=== PATIENT | male | born 1975 | race Caucasian/White ===

== ENCOUNTER 2018-07-05 09:46 | Emergency (ER) | payer BC ==
--- NOTE | 2018-07-05 10:02 | UC ---
Headache HPI - HPI Summary HPI Summary: 42 yo male presents with generalized headache for the last 9 days. He tells me that about 3 weeks ago he feel walking on the ice to his truck and hit the back of his head on the ice. No LOC. Was able to get to his feet and continued about his day. Was never evaluated by a medical provider for this injury. About 9 days ago he woke up with a mild headache, which he says is not uncommon for him. He will usually take tylenol/ibuprofen and his headache goes away. This headache has had some improvement with tylenol/ibuprofen, but has not resolved completely. He notes that his headache is worse while at work while working with computer screens. Rest improves his headache. Denies recent illness, fever , SOB, chest pain, palpitations, abdominal pain, n/v. - History Of Current Complaint Chief Complaint: UCHeadInjury Stated Complaint: HEADACHE Time Seen by Provider: 07/05/18 10:01 Hx Obtained From: Patient Onset/Duration: Gradual Onset Initially Headache Was: Mild Currently Pain Is: Mild Pain Intensity: 4 Pain Scale Used: 0-10 Numeric - Allergies/Home Medications Allergies/Adverse Reactions: Allergies Allergy/AdvReac Type Severity Reaction Status Date / Time No Known Allergies Allergy Verified 07/05/18 10:01 Home Medications: Home Medications NK [No Home Medications Reported] 07/05/18 [History Confirmed 07/05/18] PMH/Surg Hx/FS Hx/Imm Hx - Additional Past Medical History Additional PMH: None - Surgical History Surgical History: None - Family History Known Family History: Positive: Hypertension - Social History Occupation: Employed Full-time Lives: With Family Alcohol Use: Rare Substance Use Type: None Smoking Status (MU): Never Smoked Tobacco Review of Systems All Other Systems Reviewed And Are Negative: Yes Constitutional: Positive: Negative Skin: Positive: Negative Eyes: Positive: Negative ENT: Positive: Negative Respiratory: Positive: Negative Cardiovascular: Positive: Negative Gastrointestinal: Positive: Negative Genitourinary: Positive: Negative Neurovascular: Positive: Negative Musculoskeletal: Positive: Negative Neurological: Positive: Headache Psychological: Positive: Negative Physical Exam - Summary Physical Exam Summary: GENERAL: NAD. WDWN. No pain distress. SKIN: No rashes, sores, ulcers, masses, lesions. HEENT: Head: AT/NC. No raccoon eyes or battles sign. No hematoma. Eyes: PERRLA. EOM intact. Conjunctiva clear without inflammation or discharge. Ears: Hearing grossly normal. TMs intact, no bulging, erythema, or edema. No hemotympanum NECK: Supple. Nontender. FROM CHEST: CTAB. No r/r/w. No accessory muscle use. Breathing comfortably and in no distress. CV: RRR. Without m/r/g. Pulses intact. Brisk cap refill. MSK: FROM in B/L UEs and LEs with symmetric strength. NEURO: A&Ox3. 3 word recall, remote, recent memory, ability to follow 2-step directions, and attention intact. CN: II: Peripheral boone intact. Vision normal. III, IV, : EOMI. No nystagmus. PERRLA. V: Sensations intact and symmetric. Opens mouth and clenches teeth. VII: No facial asymmetry. Forehead wrinkles. Grins, shuts eyes, frowns, puffs cheeks. VIII: Hearing intact to finger rub. IX, X: Swallows and coughs. Uvula midline. XI: Shrugs shoulders. Turns head against resistance. XII: No tongue deviation [id number] are intact. Gait with normal base. Romberg: maintains balance, no pronator drift. Normal speech. No facial drooping. PSYCH: Age appropriate behavior. Triage Information Reviewed: Yes Vital Signs: Initial Vital Signs Temp 98 F 07/05/18 09:58 Pulse 68 07/05/18 09:58 Resp 16 07/05/18 09:58 BP 158/98 07/05/18 09:58 Pulse Ox 100 07/05/18 09:58 Vital Signs Reviewed: Yes Headache Course/Dx - Course Course Of Treatment: CT: IMPRESSION: #. No CT evidence for traumatic brain injury or acute intracranial process. Normal exam. He was given toradol IM in the clinic for his headache. I suspect he may be suffering from post-concussion syndrome given his head injury prior to his current symptoms. Advised to rest and refrain from activities that worsen his headache such as computer screens, texting, and physical activities. Advised to f/u with [facility] and/or his pcp for follow up. - Differential Dx/Diagnosis Provider Diagnosis: Head injury, Post concussion syndrome Discharge - Sign-Out/Discharge Documenting (check all that apply): Patient Departure All imaging exams completed and their final reports reviewed: Yes - Discharge Plan Condition: Stable Disposition: HOME Patient Education Materials: Acute Headache (ED), Post Concussion Syndrome (ED) Referrals: No Primary Care Phys,NOPCP [Primary Care Provider] - [facility] [Provider Group] - If Needed Additional Instructions: If you develop a fever, shortness of breath, chest pain, new or worsening symptoms - please call your PCP or go to the ED. Your blood pressure was high at todays visit. Please see your primary provider within 4 weeks for recheck and re-evaluation. 1) Refrain from activities that worsen your headache - this may include texting , computer screens, or physical activity. 2) May continue taking tylenol/ibuprofen for your discomfort 3) If your headache persists - please follow up with our Concussion clinic at [facility] - Billing Disposition and Condition Condition: STABLE Disposition: Home - Attestation Statements Provider Attestation: I was available for consult. This patient was seen by the YIFAN. The patient was not presented to, seen by, or examined by me. -Aneta
[2018-07-05] MEDS ORDERED: Ketorolac INJ* 60 MG/2 ML VIAL IM ONE (10:10)
== END 2018-07-05 10:45 | disposition home or self-care (01) ==
LOC: UCEAST 09:46
DX: S09.90XA Unspecified injury of head, initial encounter (principal); W00.9XXA Unspecified fall due to ice and snow, initial encounter; Y93.01 Activity, walking, marching and hiking; Y92.9 Unspecified place or not applicable; F07.81 Postconcussional syndrome
CPT/HCPCS: 70450; 96372; 99201; G0463; J1885

== ENCOUNTER 2018-12-10 08:02 | Emergency (ER) | payer BC ==
[2018-12-10] MEDS ORDERED: NS 0.9% 1000 ML** 1,000 ML IV ONE (08:29)
[2018-12-10] MEDS ORDERED: Ondansetron INJ* 2 MG/ML VIAL IV ONE (08:29)
[2018-12-10] MEDS ORDERED: Ketorolac INJ* 30 MG/ML 1 ML VIAL IV PUSH ONE (08:29)
[2018-12-10 08:39] LABS: Urine Appearance Cloudy; Urine Bacteria Absent (Absent); Urine Bilirubin Negative (Negative); Urine Blood 2+ (Negative); Urine Color Yellow; Urine Glucose Negative (Negative); Urine Ketones Trace (Negative); Urine Nitrite Negative (Negative); Urine Protein Negative (Negative); Urine Red Blood Cell 3+(>10/hpf) (Absent); Urine Specific Gravity 1.028 (1.010-1.030); Urine Urobilinogen Negative (Negative); Urine White Blood Cell Trace(0-5/hpf) (Absent)
[2018-12-10 08:41] LABS: ABS Lymphocytes 0.9 10^3/ul (1.0-4.8); ABS Monocytes 0.2 10^3/ul (0-0.8); ABS Neutrophils 7.4 10^3/ul (1.5-7.7); Eosinophil % 0.3 %; Hematocrit 43 % (42-52); Hemoglobin 14.6 g/dL (14.0-18.0); Lymphocyte % 10.2 %; Mean Corpuscular HGB Conc 34 g/dL (31-36); Mean Corpuscular Hemoglobin 31 pg (27-31); Mean Corpuscular Volume 90 fL (80-94); Mean Platelet Volume 8.1 fL (7.4-10.4); Platelet Count 204 10^3/uL (150-450); Red Blood Count 4.71 10^6 /uL (4.18-5.48); Red Cell Distribution Width 13 % (10-15); White Blood Count 8.6 10^3/uL (3.5-10.8)
[2018-12-10 08:54] LABS: Albumin 4.4 g/dL (3.2-5.2); Calcium 9.8 mg/dL (8.6-10.3); Potassium 4.5 mmol/L (3.5-5.0); Total Bilirubin 0.5 mg/dL (0.2-1.0)
[2018-12-10 09:00] LABS: Albumin/Globulin Ratio 1.3 (1-3); BUN/Creatinine Ratio 14.9 (8-20); C Reactive Protein 3.75 mg/L (<8.01); EGFR African American 84.1 (>60); EGFR Non-African American 69.5 (>60); Globulin 3.3 g/dL (2-4); Total Protein 7.7 g/dL (6.4-8.9)
[2018-12-10 10:10] VITALS: BP 117/85
--- NOTE | 2018-12-10 11:03 | ED ---
Back Pain - HPI Summary HPI Summary: Patient is a 43-year-old male who presents to the emergency department for acute onset of right flank pain and radiates into right lower leg. Patient denies any injuries or falls. She also notes urinary hesitancy and pressure. He denies such symptoms of fever, chills, chest pain, shortness of breath. He notes nausea without vomiting. Patient has never experienced symptoms like these in the past. No past medical history. Symptoms are moderate in severity. No current modifying factors. - History of Current Complaint Chief Complaint: EDAbdPain Stated Complaint: ABDOMINAL AND BACK PAIN PER PT Time Seen by Provider: 12/10/18 08:10 Hx Obtained From: Patient Pain Intensity: 1 Pain Scale Used: 0-10 Numeric - Allergies/Home Medications Allergies/Adverse Reactions: Allergies Allergy/AdvReac Type Severity Reaction Status Date / Time No Known Allergies Allergy Verified 12/10/18 08:06 PMH/Surg Hx/FS Hx/Imm Hx Previously Healthy: Yes Infectious Disease History: No Infectious Disease History: Denies: Traveled Outside the [place] in Last 30 Days - Family History Known Family History: Positive: Hypertension, Non-Contributory - Social History Occupation: Employed Full-time Lives: With Family Alcohol Use: Rare Substance Use Type: Reports: None Smoking Status (MU): Never Smoked Tobacco Review of Systems Constitutional: Negative Negative: Fever, Chills Cardiovascular: Negative Respiratory: Negative Positive: Abdominal Pain, Nausea Positive: flank pain, urgency All Other Systems Reviewed And Are Negative: Yes Physical Exam Triage Information Reviewed: Yes Vital Signs On Initial Exam: Initial Vitals Temp Pulse Resp BP Pulse Ox 96.3 F 62 18 174/94 100 12/10/18 08:04 12/10/18 08:04 12/10/18 08:04 12/10/18 08:04 12/10/18 08:04 Vital Signs Reviewed: Yes Appearance: Positive: Well-Appearing - Pt. lying on bed holding right flank. Appears uncomfortable but nontoxic. Skin: Positive: Warm, Dry Head/Face: Positive: Normal Head/Face Inspection Eyes: Positive: Normal, EOMI Neck: Positive: Supple Respiratory/Lung Sounds: Positive: Clear to Auscultation, Breath Sounds Present Cardiovascular: Positive: Normal, RRR Abdomen Description: Positive: Nontender, Soft, Other:. Negative: CVA Tenderness (R), CVA Tenderness (L) Musculoskeletal: Positive: Normal, Strength/ROM Intact Neurological: Positive: Normal, CN Intact II-III Psychiatric: Positive: Affect/Mood Appropriate Diagnostics - Vital Signs Vital Signs Temp Pulse Resp BP Pulse Ox 12/10/18 10:10 97.8 F 77 19 117/85 97 12/10/18 10:08 117/85 12/10/18 10:00 72 96 12/10/18 09:42 73 125/78 99 12/10/18 09:13 78 122/79 98 12/10/18 09:00 69 98 12/10/18 08:43 60 137/75 96 12/10/18 08:12 64 161/105 100 12/10/18 08:04 96.3 F 62 18 174/94 100 - Laboratory Lab Results: Lab Results 12/10/18 12/10/18 12/10/18 Range/Units 08:17 08:35 08:35 WBC 8.6 (3.5-10.8) 10^3/uL RBC 4.71 (4.18-5.48) 10^6 /uL Hgb 14.6 (14.0-18.0) g/dL Hct 43 (42-52) % MCV 90 (80-94) fL MCH 31 (27-31) pg MCHC 34 (31-36) g/dL RDW 13 (10-15) % Plt Count 204 (150-450) 10^3/uL MPV 8.1 (7.4-10.4) fL Neut % (Auto) 86.4 % Lymph % (Auto) 10.2 % [place] % (Auto) 2.7 % Eos % (Auto) 0.3 % Baso % (Auto) 0.4 % Absolute Neuts (auto) 7.4 (1.5-7.7) 10^3/ul Absolute Lymphs (auto) 0.9 L (1.0-4.8) 10^3/ul Absolute Monos (auto) 0.2 (0-0.8) 10^3/ul Absolute Eos (auto) 0.0 (0-0.6) 10^3/ul Absolute Basos (auto) 0.0 (0-0.2) 10^3/ul Absolute Nucleated RBC 0.0 10^3/ul Nucleated RBC % 0.0 Sodium 136 (135-145) mmol/L Potassium 4.5 (3.5-5.0) mmol/L Chloride 105 (101-111) mmol/L Carbon Dioxide 23 (22-32) mmol/L Anion Gap 8 (2-11) mmol/L BUN 17 (6-24) mg/dL Creatinine 1.14 (0.67-1.17) mg/dL Est GFR ( Amer) 84.1 (>60) Est GFR (Non-Af Amer) 69.5 (>60) BUN/Creatinine Ratio 14.9 (8-20) Glucose 154 H (70-100) mg/dL Calcium 9.8 (8.6-10.3) mg/dL Total Bilirubin 0.50 (0.2-1.0) mg/dL AST 23 (13-39) U/L ALT 29 (7-52) U/L Alkaline Phosphatase 43 (34-104) U/L C-Reactive Protein 3.75 (<8.01) mg/L Total Protein 7.7 (6.4-8.9) g/dL Albumin 4.4 (3.2-5.2) g/dL Globulin 3.3 (2-4) g/dL Albumin/Globulin Ratio 1.3 (1-3) Urine Color Yellow Urine Appearance Cloudy Urine pH 5.0 (5-9) Ur Specific [place] 1.028 (1.010-1.030) Urine Protein Negative (Negative) Urine Ketones Trace A (Negative) Urine Blood 2+ A (Negative) Urine Nitrate Negative (Negative) Urine Bilirubin Negative (Negative) Urine Urobilinogen Negative (Negative) Ur Leukocyte Esterase Negative (Negative) Urine WBC (Auto) Trace(0-5/hpf) (Absent) Urine RBC (Auto) 3+(>10/hpf) A (Absent) Urine Bacteria Absent (Absent) Urine Glucose Negative (Negative) Result Diagrams: 12/10/18 08:35 12/10/18 08:35 Lab Statement: Any lab studies that have been ordered have been reviewed, and results considered in the medical decision making process. Back Pain Course/Dx - Course Course Of Treatment: Patient presenting with acute onset of right flank pain. Afebrile stable vital signs. Suspect urolithiasis. After presentation patient' s pain started to improve and he declined pain medication. He was given IV fluids. Blood work is unremarkable. Urinalysis shows RBCs without signs of infection. GB per radiology: IMPRESSION: #. The constellation of findings given the clinical context favors a recently passed RIGHT. kidney stone with the 0.2 cm stone visualized within the dependent portion of the urinary. bladder. Negative for hydronephrosis. #. Normal appendix documented. On reexamination patient resting comfortably. Results discussed. He is pain free. Will dc home to [facility] with the [facility]. Will return to ER if sxs change or worsen - Diagnoses Differential Diagnosis/HQI/PQRI: Positive: Renal Colic, Strain, Sprain Provider Diagnoses: Kidney stone Discharge - Sign-Out/Discharge Documenting (check all that apply): Patient Departure Patient Received Moderate/Deep Sedation with Procedure: No - Discharge Plan Condition: Improved Disposition: HOME Patient Education Materials: Kidney Stones (ED) Referrals: [facility] [Outside] Additional Instructions: Follow up with the [facility] Increase fluids Tylenol or motrin for pain as directed Return to ER if symptoms change or worsen - Billing Disposition and Condition Condition: IMPROVED Disposition: Home
== END 2018-12-10 10:10 | disposition home or self-care (01) ==
LOC: ED 08:02
DX: N20.0 Calculus of kidney (principal)
CPT/HCPCS: 36415; 74176; 80053; 81003; 81015; 85025; 86140; 87086; 96361; 96374; 96375; 99283; J1885; J2405